=== PATIENT | male | born 1965 | race Two or more races ===

== ENCOUNTER 2023-09-21 00:22 | Emergency (ER) | payer OTHER ==
[~2023-09-21] VITALS: Ht 172.7 cm; Wt 85.6 kg
[2023-09-21] MEDS ORDERED: IBUP-1456 PO (03:19)
[2023-09-21 04:10] VITALS: BP 139/89; PULSE 63; RESP 20; TEMP 98.4; O2SAT 98
== END 2023-09-21 04:26 | disposition home or self-care (01) ==
LOC: ER 00:22
DX: S63.602A Unspecified sprain of left thumb, initial encounter (principal); E78.5 Hyperlipidemia, unspecified; I10 Essential (primary) hypertension; X50.0XXA Overexertion from strenuous movement or load, initial encounter; Y93.89 Activity, other specified; Y92.89 Other specified places as the place of occurrence of the external cause; Y99.8 Other external cause status
CPT/HCPCS: 29125; 73130

== ENCOUNTER 2024-04-25 19:00 | Emergency (ER) | payer MEDICAID, OTHER ==
[~2024-04-25] VITALS: Ht 172.7 cm; Wt 87.5 kg
[~2024-04-25 19:00] MED LIST: IBUP-1456 PO
[2024-04-25] MEDS: SILVER SULFADIAZINE 1 % TOPICAL CREAM 50GM TOP ONE ×2 (19:27)
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
[2024-04-25] MEDS: HYDROcodone-ACET 10/325MG TAB PO ONE (19:40)
[2024-04-25] MEDS: TETANUS-DIPTH-ACEL PERTUSSIS 0.5ML SYR Tdap IM ONE (19:44)
[2024-04-25] MEDS ORDERED: SILV1CRE82 TOP (20:17)
[2024-04-25] MEDS ORDERED: HYDR-4902 PO (20:17)
[2024-04-25] MEDS ORDERED: IBUP-1455 PO (20:17)
[2024-04-25 20:36] VITALS: BP 149/94; PULSE 74; RESP 16; TEMP 98.3; O2SAT 95
== END 2024-04-25 20:39 | disposition home or self-care (01) ==
LOC: ER 19:00
DX: T22.212A Burn of second degree of left forearm, initial encounter (principal); T23.292A Burn of second degree of multiple sites of left wrist and hand, initial encounter; T31.0 Burns involving less than 10% of body surface; Z79.899 Other long term (current) drug therapy; X19.XXXA Contact with other heat and hot substances, initial encounter; Y93.89 Activity, other specified; Y92.89 Other specified places as the place of occurrence of the external cause; Y99.8 Other external cause status
CPT/HCPCS: 16020; 90471; 90715